=== PATIENT | female | born 1995 | race Caucasian/White ===

== ENCOUNTER 2017-08-26 22:53 | Outpatient (CLI) | payer OTHER ==
[2017-08-27 01:25] LABS: ADD UMIC YES; UR ASCORBIC ACID NEGATIVE (NEGATIVE); UR BILIRUBIN (Dip) NEGATIVE (NEGATIVE); UR BLOOD (Dip) NEGATIVE (NEGATIVE); UR CLARITY SLIGHTLY CLOUDY (CLEAR); UR COLOR YELLOW (YELLOW); UR GLUCOSE (Dip) NEGATIVE (NEGATIVE); UR KETONES (Dip) NEGATIVE (NEGATIVE); UR LEUKOCYTE ESTERASE (Dip) 3+ Leu/ul (NEGATIVE); UR MUCUS FEW /HPF (NONE SEEN); UR NITRITE (Dip) NEGATIVE (NEGATIVE); UR RBC 1 /HPF (0-5); UR SPECIFIC GRAVITY (Dip) 1.019 (1.003-1.030); UR SQUAMOUS EPITHELIAL CELL FEW /HPF (FEW); UR TOTAL PROTEIN (Dip) NEGATIVE (NEGATIVE); UR UROBILINOGEN (Dip) NEGATIVE (NEGATIVE); UR WBC 2 /HPF (0-5)
== END 2017-08-27 03:11 | disposition home or self-care (01) ==
LOC: OBT 22:53 → L-D 22:54
DX: O26.893 Other specified pregnancy related conditions, third trimester (principal); R10.2 Pelvic and perineal pain; Z3A.39 39 weeks gestation of pregnancy
CPT/HCPCS: 76818; 81001

== ENCOUNTER 2017-08-31 09:12 | Outpatient (CLI) | payer OTHER | END 2017-08-31 11:27 | disposition home or self-care (01) | LOC: OBT 09:12 → L-D 09:12 → OBT 11:27 | DX: O48.0 Post-term pregnancy (principal); Z3A.40 40 weeks gestation of pregnancy | CPT/HCPCS: 76818 ==

== ENCOUNTER 2017-09-01 14:29 | Inpatient (IN) | payer OTHER ==
[2017-09-01 16:28] LABS: ADD MAN DIFF? NO
[2017-09-01] MEDS ORDERED: MISOPROSTOL 200 MCG TAB PR (16:30)
[2017-09-01] MEDS ORDERED: METHYLERGONOVINE 0.2 MG INJ IM (16:30)
[2017-09-01] MEDS ORDERED: BUTORPHANOL 2 MG INJ IV ×2 (16:30)
[2017-09-01] MEDS ORDERED: LIDOCAINE 1% (MPF) 30 ML INJ INJ (16:30)
[2017-09-01] MEDS ORDERED: IBUPROFEN 600 MG TAB PO (16:30)
[2017-09-01] MEDS ORDERED: OXYTOCIN 30 UNITS/LR 500 ML IV (16:30)
[2017-09-01] MEDS ORDERED: CARBOPROST 250 MCG INJ IM (16:30)
[2017-09-01 16:32] LABS: BASOPHILS % 0.4 % (0.0-2.0); EOSINOPHILS # 0.2 10^3/ul (0.0-0.5); EOSINOPHILS % 1.4 % (0.0-7.0); HEMOGLOBIN 12.3 g/dl (12.0-16.0); LYMPHOCYTES # 2.2 10^3/ul (0.8-2.9); LYMPHOCYTES % 20.5 % (18.0-55.0); MEAN CORPUSCULAR HEMOGLOBIN 31.5 pg (29.0-33.0); MEAN CORPUSCULAR HGB CONC 34.2 g/dl (32.0-37.0); MEAN CORPUSCULAR VOLUME 92.1 fl (72.0-104.0); MEAN PLATELET VOLUME 11.2 fl (7.4-10.4); MONOCYTE # 0.6 10^3/ul (0.3-0.9); MONOCYTES % 5.7 % (0.0-13.0); NEUTROPHIL # 7.5 10^3/ul (1.6-7.5); NEUTROPHILS % 70.8 % (30.0-74.0); PLATELET COUNT 188 10^3/UL (140-415); RED BLOOD COUNT 3.91 10^6/ul (4.20-5.40); RED CELL DISTRIBUTION WIDTH 13.3 % (11.5-14.5)
[2017-09-01 16:32] LABS: WHITE BLOOD COUNT 10.6 10^3/ul (4.8-10.8)
[2017-09-01] MEDS: LACTATED RINGER'S 1,000 ML IV ×2 (16:42→23:33)
[2017-09-01 16:51] LABS: INR 0.94; PROTIME 12.7 Sec (11.9-14.9)
[2017-09-01 16:52] LABS: PARTIAL THROMBOPLASTIN TIME 25.6 Sec (25.0-35.0)
[2017-09-01] MEDS: AMPICILLIN 2 GM/NS (PMX) 100 ML IV (16:53)
[2017-09-01] MEDS: DINOPROSTONE 10 MG VAG SUPP VAG (16:53)
[2017-09-01 20:31] LABS: HEPATITIS B SURFACE ANTIGEN NEGATIVE (NEGATIVE)
[2017-09-01 21:23] LABS: RAPID PLASMA REAGIN NONREACTIVE (NR)
[2017-09-01] MEDS: AMPICILLIN 1 GM/NS (PMX) 50 ML IV (21:55)
[2017-09-02] MEDS: AMPICILLIN 1 GM/NS (PMX) 50 ML IV ×6 (02:12→20:22)
[2017-09-02] MEDS: LACTATED RINGER'S 1,000 ML IV ×3 (04:13→22:10)
[2017-09-02] MEDS ORDERED: FENTAnyl 2MCG/ML-ROPIV 0.2% 100 ML (04:50)
[2017-09-02] MEDS ORDERED: OXYTOCIN 30 UNITS/LR 500 ML IV (10:30)
[2017-09-02] MEDS: OXYTOCIN 30 UNITS/LR 500 ML IV (12:08)
[2017-09-03] MEDS: AMPICILLIN 1 GM/NS (PMX) 50 ML IV ×3 (00:17→08:30)
[2017-09-03] MEDS: LACTATED RINGER'S 1,000 ML IV ×2 (01:08→03:21)
[2017-09-03] MEDS ORDERED: NALOXONE (0.4 MG/ML) INJ IV ×2 (02:00→09:00)
[2017-09-03] MEDS ORDERED: ONDANSETRON 4 MG INJ IV ×4 (02:00→12:30)
[2017-09-03] MEDS ORDERED: EPHEDrine SULFATE 50 MG/5 ML SYG IV ×2 (02:00→09:00)
[2017-09-03] MEDS ORDERED: DIPHENHYDRAMINE 50 MG INJ IV ×4 (02:00→12:30)
[2017-09-03] MEDS ORDERED: FENTAnyl 2MCG/ML-ROPIV 0.2% 100 ML BAG EPI (02:00)
[2017-09-03] MEDS ORDERED: CARBOPROST 250 MCG INJ IM ×2 (07:00→12:30)
[2017-09-03] MEDS ORDERED: MISOPROSTOL 200 MCG TAB PR ×2 (07:00→12:30)
[2017-09-03] MEDS ORDERED: METHYLERGONOVINE 0.2 MG INJ IM ×2 (07:00→12:30)
[2017-09-03] MEDS ORDERED: OXYTOCIN 30 UNITS/LR 500 ML IV ×2 (07:00→12:30)
[2017-09-03] MEDS ORDERED: CITRIC ACID/SODIUM CITRATE 15 ML CUP (07:12)
[2017-09-03] MEDS: ONDANSETRON 4 MG INJ IV (07:30)
[2017-09-03] MEDS: CITRIC ACID/SODIUM CITRATE 15 ML CUP PO (07:30)
[2017-09-03] MEDS ORDERED: FENTAnyl 50 MCG/ML VIAL (07:38)
[2017-09-03] MEDS ORDERED: morphine SULFATE/PF (10 MG/10 ML) INJ (07:38)
[2017-09-03] MEDS ORDERED: METOCLOPRAMIDE 10 MG INJ (07:38)
[2017-09-03] MEDS ORDERED: PHENYLephrine (100 MCG/ML) 5ML SYG (07:38)
[2017-09-03] MEDS ORDERED: OXYTOCIN 10 UNIT INJ (07:39)
[2017-09-03] MEDS ORDERED: TRIMETHOBENZAMIDE 100 MG/ML VIAL IM ×2 (09:00)
[2017-09-03] MEDS ORDERED: HYDROmorphONE (0.2 MG/ML) 10ML SYG IV ×3 (09:00)
[2017-09-03] MEDS ORDERED: MIDAZOLAM 1 MG/ML 2 ML INJ IV (09:00)
[2017-09-03] MEDS ORDERED: MEPERIDINE 25 MG INJ IV (09:00)
[2017-09-03] MEDS ORDERED: IPRATROPIUM (NEB) 0.5 MG/2.5 ML AMP HHN (09:00)
[2017-09-03] MEDS ORDERED: morphine 2 MG INJ IV (09:00)
[2017-09-03] MEDS ORDERED: OXYCODONE/ACETAMINOPHEN (5/325) TAB PO ×2 (09:00)
[2017-09-03] MEDS ORDERED: FENTAnyl 50 MCG/ML VIAL IV ×3 (09:00)
[2017-09-03] MEDS ORDERED: NALBUPHINE HCL (10 MG/1 ML) INJ IV (09:00)
[2017-09-03] MEDS ORDERED: LABETALOL HCL 20MG INJ IV (09:00)
[2017-09-03] MEDS ORDERED: ALBUTEROL 0.083% (NEB) 2.5 MG/3 ML AMP HHN (09:00)
[2017-09-03] MEDS ORDERED: morphine 4 MG/ML VIAL IV (09:00)
[2017-09-03] MEDS ORDERED: hydrALAzine 20 MG INJ IV (09:00)
[2017-09-03] MEDS: CEFAZOLIN 2 GM/50 ML (PMX) 50 ML IV (10:27)
[2017-09-03] MEDS: OXYTOCIN 30 UNITS/LR 500 ML IV ×2 (10:37→12:52)
[2017-09-03] MEDS ORDERED: ZOLPIDEM 5 MG TAB PO (12:30)
[2017-09-03] MEDS: KETOROLAC 30 MG INJ IV ×2 (12:50→23:21)
[2017-09-03] MEDS: LACTATED RINGER'S 500 ML IV ×2 (17:25→21:17)
[2017-09-03] MEDS: IBUPROFEN 600 MG TAB PO (18:00)
[2017-09-03] MEDS: SENNA/DOCUSATE NA (8.6MG/50MG) TAB PO (21:00)
[2017-09-04] MEDS: LACTATED RINGER'S 500 ML IV ×2 (02:19→05:59)
[2017-09-04] MEDS: IBUPROFEN 600 MG TAB PO ×4 (06:00→17:25)
[2017-09-04] MEDS: KETOROLAC 30 MG INJ IV (08:24)
[2017-09-04 08:51] LABS: ADD MAN DIFF? NO
[2017-09-04 08:54] LABS: BASOPHILS % 0.3 % (0.0-2.0); EOSINOPHILS # 0.2 10^3/ul (0.0-0.5); EOSINOPHILS % 1.7 % (0.0-7.0); HEMATOCRIT 30.8 % (37.0-47.0); HEMOGLOBIN 10.7 g/dl (12.0-16.0); LYMPHOCYTES % 20.9 % (18.0-55.0); MEAN CORPUSCULAR HEMOGLOBIN 31.8 pg (29.0-33.0); MEAN CORPUSCULAR HGB CONC 34.7 g/dl (32.0-37.0); MEAN CORPUSCULAR VOLUME 91.7 fl (72.0-104.0); MEAN PLATELET VOLUME 10.6 fl (7.4-10.4); MONOCYTE # 0.6 10^3/ul (0.3-0.9); MONOCYTES % 6.1 % (0.0-13.0); NEUTROPHIL # 6.7 10^3/ul (1.6-7.5); NEUTROPHILS % 70.5 % (30.0-74.0); PLATELET COUNT 150 10^3/UL (140-415); RED BLOOD COUNT 3.36 10^6/ul (4.20-5.40); RED CELL DISTRIBUTION WIDTH 13.3 % (11.5-14.5)
[2017-09-04 08:54] LABS: WHITE BLOOD COUNT 9.6 10^3/ul (4.8-10.8)
[2017-09-04] MEDS: SENNA/DOCUSATE NA (8.6MG/50MG) TAB PO ×2 (09:10→21:39)
[2017-09-04] MEDS: OXYCODONE/ACETAMINOPHEN (5/325) TAB PO (18:47)
[2017-09-05] MEDS: IBUPROFEN 600 MG TAB PO ×5 (00:01→23:36)
[2017-09-05] MEDS: OXYCODONE/ACETAMINOPHEN (5/325) TAB PO ×3 (08:14→19:25)
[2017-09-05] MEDS: SENNA/DOCUSATE NA (8.6MG/50MG) TAB PO ×2 (08:14→19:59)
[2017-09-06] MEDS: IBUPROFEN 600 MG TAB PO ×3 (05:22→17:51)
[2017-09-06] MEDS: OXYCODONE/ACETAMINOPHEN (5/325) TAB PO ×3 (06:40→14:01)
[2017-09-06] MEDS: DIPHTH/TET/ACEL PERTUSS (ADULT) 0.5 ML VIAL IM* (09:00)
[2017-09-06] MEDS: SENNA/DOCUSATE NA (8.6MG/50MG) TAB PO (09:57)
[2017-09-06] MEDS: LANOLIN 7 GM TUBE TOP (09:57)
== END 2017-09-06 17:00 | disposition home or self-care (01) | DRG 766 ==
LOC: L-D 09-03 07:36 → PP1 09-03 12:19 → L-D 09-02 18:05
PROVIDERS: Obstetrics & Gynecology
PROC: 3E0P7VZ Introduction of Hormone into Female Reproductive, Via Natural or Artificial Opening (ICD-10-PCS; 2017-09-01)
PROC: 10D00Z1 Extraction of Products of Conception, Low, Open Approach (ICD-10-PCS; principal; 2017-09-03)
DX: O99.824 Streptococcus B carrier state complicating childbirth (principal); O32.4XX0 Maternal care for high head at term, not applicable or unspecified; O62.0 Primary inadequate contractions; Z37.0 Single live birth; Z3A.40 40 weeks gestation of pregnancy
CPT/HCPCS: 62319; 76815; 85025; 85610; 85730; 86592; 86900; 86901; 87340; 90715; 99464